=== PATIENT | female | born 1980 | race Hispanic/Latino ===

== ENCOUNTER 2021-06-14 09:25 | Emergency (ER) | payer MEDICAID, OTHER ==
[~2021-06-14] VITALS: Ht 152.4 cm; Wt 79.4 kg
[2021-06-14 09:46] LABS: BASOPHILS % (AUTO) 0.3 % (0.0-5.0); EOSINOPHILS % (AUTO) 1.6 % (0.0-8.0); HEMATOCRIT 42.5 % (36-48); LYMPHOCYTES % (AUTO) 7.2 % (21.0-51.0); MEAN CORPUSCULAR HEMOGLOBIN 28.2 pg (27.0-33.0); MEAN CORPUSCULAR HGB CONC 33.2 g/dL (32.0-36.0); MONOCYTES % (AUTO) 7.1 % (3.0-13.0); NEUTROPHILS % (AUTO) 83.1 % (40.0-77.0); PLATELET COUNT (AUTO) 383 K/uL (130-400); RED CELL DISTRIBUTION WIDTH 12.7 % (11.0-15.5); WHITE BLOOD COUNT (AUTO) 10.9 K/uL (4.8-10.8)
[2021-06-14 09:59] LABS: INR 1.02 (0.85-1.15); PROTHROMBIN TIME 11.1 SEC (9.6-11.6)
[2021-06-14 10:00] LABS: CREATININE 0.6 mg/dL (0.5-1.5); POTASSIUM 3.6 mmol/L (3.5-5.1)
[2021-06-14 10:01] LABS: PARTIAL THROMBOPLASTIN TIME 29.9 SEC (26.3-35.5)
[2021-06-14 10:03] LABS: ALBUMIN 3.6 g/dL (3.5-5.0); BILIRUBIN,TOTAL 0.2 mg/dL (0.2-1.0); TOTAL PROTEIN, SERUM 7.2 g/dL (6.0-8.3)
[2021-06-14 10:37] LABS: B-TYPE NATRIURETIC PEPTIDE 21 pg/mL (0-100)
[2021-06-14] MEDS ORDERED: KETOROLAC 30MG VIAL (30MG/ML) IV SCH (11:00)
[2021-06-14 13:09] LABS: APPEARANCE,URINE Clear (CLEAR); BILIRUBIN,URINE Negative (NEGATIVE); COLOR,URINE Yellow (YELLOW); GLUCOSE, URINE (UA) Negative (NEGATIVE); KETONES,URINE Negative (NEGATIVE); LEUKOCYTE ESTERASE ,URINE Negative (NEGATIVE); NITRATE,URINE Negative (NEGATIVE); OCCULT BLOOD,URINE Negative (NEGATIVE); PROTEIN,URINE Negative (NEGATIVE); UROBILINOGEN,URINE 0.2 mg/dL (0.2-1.0)
[2021-06-14] MEDS ORDERED: IOHEXOL 350 MG/ML 100ML INFUS..BTL IV ONE (14:22)
[2021-06-14] MEDS ORDERED: 0.9%NACL 1000ML 1,000 ML IV ONE (14:30)
[2021-06-14] MEDS ORDERED: NAPR-1180 PO (15:58)
[2021-06-14 16:39] VITALS: BP 132/80
== END 2021-06-14 16:30 | disposition home or self-care (01) ==
LOC: EDH 09:25
DX: R07.89 Other chest pain (principal); R00.0 Tachycardia, unspecified; R51.9 Headache, unspecified; J45.909 Unspecified asthma, uncomplicated; Z98.890 Other specified postprocedural states
CPT/HCPCS: 36415; 71045; 71275; 80053; 81003; 82550; 83880; 84484 ×2; 85025; 85378; 85610; 85730; 86140; 93005 ×2; 96374; 99285; J1885; Q9967

== ENCOUNTER 2024-08-11 16:50 | Emergency (ER) | payer BC, MEDICAID ==
[~2024-08-11] VITALS: Ht 142.2 cm; Wt 74.8 kg
[~2024-08-11 16:50] MED LIST: NAPR-1180 PO
--- NOTE | 2024-08-11 17:05 | ERN ---
ED Note History of Present Illness Stated Complaint: FALL Chief Complaint: Mechanical Fall Time Seen by MD: 16:57 Dictation: PATIENT IS A 44-YEAR-OLD FEMALE HERE WITH RIGHT ANKLE PAIN SWELLING AND DECREASED RANGE OF MOTION AND UNABLE TO WEIGHT BEAR SINCE TRIPPING AND FALLING 2 HOURS PRIOR TO ARRIVAL SKIN IS INTACT. NEUROVASCULAR CMS INTACT SHE HAS NOT TAKEN ANYTHING PRIOR TO ARRIVAL FOR PAIN. Allergies: Coded Allergies: No Known Drug Allergies (Unverified Allergy, Unknown, 06/14/21) Home Meds Active Scripts Naproxen (Naprosyn) 500 Mg Tablet, 500 MG PO BIDPC for 10 Days, #20 TAB 0 Refills Prov:MAGED DELACRUZ MD 06/14/21 Past Medical History Past Medical History: Asthma, Hypertension Surgical History: Cholecystectomy, Social History: Negative History: Not Applicable RN Note Reviewed/Agreed w/PFSH: Yes Review of System Dictation CONSTITUTIONAL: NEGATIVE EXCEPT FOR HPI HEAD/FACE: NEGATIVE EXCEPT FOR HPI EENT: NEGATIVE EXCEPT FOR HPI RESPIRATORY: NEGATIVE EXCEPT FOR HPI GASTROINTESTINAL/ABDOMINAL: NEGATIVE EXCEPT FOR HPI GENITOURINARY: NEGATIVE EXCEPT FOR HPI MUSCULOSKELETAL: NEGATIVE EXCEPT FOR HPI RIGHT LATERAL ANKLE PAIN SWELLING INTEGUMENTARY: NEGATIVE EXCEPT FOR HPI NEUROLOGICAL/PSYCH: NEGATIVE EXCEPT FOR HPI HEMATOLOGIC/LYMPHATIC: NEGATIVE EXCEPT FOR HPI ALL SYSTEMS NEGATIVE, EXCEPT NOTED ABOVE. 13 POINT REVIEW OF SYSTEMS ASSESSED AND ALL NEGATIVE EXCEPT FOR ABOVE. Initial Vital Sign VS Vital Signs Date Time Temp Pulse Resp B/P (MAP) Pulse Ox O2 Delivery O2 Flow Rate FiO2 08/11/24 16:58 98.1 100 16 142/94 96 Room Air 0 08/11/24 17:17 21 Physical Exam Dictation VITAL SIGNS REVIEWED GENERAL APPEARANCE: ALERT, ORIENTED X 3, NO ACUTE DISTRESS, WELL DEVELOPED, NOURISHED. HEAD AND FACE: NON-TRAUMATIC. EYES: PERRL, PINK CONJUNCTIVAS, EYELID NO TRAUMA, ANTERIOR CHAMBER WITH ARCUS SENILIS. EARS: PINNAS INTACT AND NO SIGNS OF TRAUMA OR ERYTHEMA EAR CANALS CLEAR AND NO DISCHARGE TM NO ERYTHEMA NOSE: NO DISCHARGE, NO BLEEDING. OROPHARYNX: MOUTH NORMAL, TONGUE PINK, PHARYNX CLEAR,NO ERYTHEMA, TONSILS NO EXUDATES, NO ABSCESSES NOTED, MUCOUS MEMBRANE MOIST NECK: SUPPLE, NON-TENDER, NO THYROMEGALY, NO MASSES, NO JVD, NO BRUITS BREAST:DEFERRED CHEST:NO TENDERNESS, NO CREPITUS, NO PARADOXICAL MOVEMENT, NO RETRACTIONS LUNGS:CLEAR, WELL-VENTILATED, SYMMETRIC, NO RALES, NO WHEEZING, NO RHONCHI, NO STRIDOR, GOOD BREATH SOUNDS BILATERALLY HEART: REGULAR RATE, REGULAR RHYTHM, NO MURMUR, NO GALLOPS VASCULAR: NO PERIPHERAL EDEMA, ABDOMEN: SOFT, POSITIVE BOWEL SOUNDS, NONDISTENDED, NO GUARDING, NONTENDER, NO REBOUND, NO MASSES NO HEPATOMEGALY, NO SPLENOMEGALY, NO BUITRAGO'S SIGN, NO HERNIAS. RECTAL: DEFERRED GENITAL: DEFERRED NEUROLOGICAL: NORMAL SPEECH, MOTOR FUNCTION INTACT, SENSORY FUNCTION INTACT MUSCULOSKEL RIGHT LATERAL ANKLE AND MALLEOLAR PAIN SWELLING. DECREASED RANGE OF MOTION SECONDARY TO PAIN. SKIN IS INTACT SKIN: COLOR PINK, DRY, NO TURGOR, NO RASH, NO LACERATIONS, NO ABRASIONS, NO CONTUSIONS. LYMPHATIC: DEFERRED Results (Laboratory/Radiology) Laboratory/Radiology SHOULDER COMP 2+VWS RT CLINICAL HISTORY: RIGHT LATERAL SHOULDER PAIN STATUS POST FALL 2 HOURS PRIOR TO ARRIVAL. COMPARISON: None TECHNIQUE: 2 images were obtained. FINDINGS: No obvious fracture or dislocation. No joint effusion. The soft tissues appear unremarkable. No radiopaque foreign bodies. IMPRESSION: No acute findings. DISTAL RIGHT FIBULAR SPIRAL FRACTURE. Labs Reviewed?: Yes ED Course ED Course Orders Procedure Category Date Status Time Apply Ice Pack To: CPOE 08/11/24 Transmitted (Er) 17:02 Ibuprofen 800 Mg Tab PHA 08/11/24 Complete (Motrin) 17:30 Posterior Ankle Splint KATE.ER 08/11/24 In Process 17:02 Crutches W/Training CPOE 08/11/24 Transmitted (Er) 17:02 Ankle Comp 3vws Rt RAD 08/11/24 Taken 17:02 Shoulder Comp 2+Vws Rt RAD 08/11/24 Resulted 17:34 Current Medications Medications (Trade) Dose Ordered Sig/Ene Route PRN Reason Start Time Stop Time Status Last Admin Dose Admin Ibuprofen (moTRIN) 800 mg ONCE ONCE PO 08/11/24 17:30 08/11/24 17:31 DC 08/11/24 17:15 Vital Signs Date Time Temp Pulse Resp B/P (MAP) Pulse Ox O2 Delivery O2 Flow Rate FiO2 08/11/24 17:17 98.1 100 16 142/94 96 Room Air* 0 21 08/11/24 16:58 98.1 100 16 142/94 96 Room Air 0 1758 RIGHT ANKLE POSTERIOR SPLINT PLACED BY TECH. DISTAL NEUROVASCULAR CMS INTACT POST PLACEMENT. PATIENT AND DAUGHTER MADE AWARE PATIENT HAS A DISTAL FIBULAR FRACTURE WITH A RIGHT SHOULDER NEGATIVE. Medical Decision Making MDM MEDICAL DISCHARGE MAKING BASED ON X-RAYS OF ALL PAINFUL AREAS TO INCLUDE SHOULDER AND RIGHT ANKLE. RIGHT SHOULDER NEGATIVE PATIENT HAS A SPIRAL FRACTURE OF THE RIGHT FIBULA. SPLINT IN PLACE PATIENT DISCHARGED HOME WITH CRUTCHES NO WEIGHT-BEARING INSTRUCTIONS UNTIL CLEARED BY ORTHOPEDIC SURGEON REFERRED TO DR. MORIAH MIKE DX & DISP Disposition: Discharge Departure Impression: Primary Impression: Fracture of distal end of right fibula Additional Impressions: Contusion of right shoulder, initial encounter, Fall Condition: Stable Scripts Ibuprofen (Ibuprofen 800 mg Tab) 800 Mg Tab 800 MG PO Q8H PRN for fever or pain, #30 TAB 0 Refills Prov: GILBERTO MCKEON NP 08/11/24 Additional Instructions: FOLLOW-UP WITH PRIMARY CARE PROVIDER IN 1 TO 2 DAYS. TAKE MEDICATIONS DIRECTED HERE IN THE EMERGENCY ROOM. OKAY TO CONTINUE HOME MEDICATIONS UNLESS OTHERWISE DISCUSSED DURING YOUR VISIT IN THE EMERGENCY ROOM TODAY. RETURN TO YOUR NEAREST EMERGENCY ROOM IF SYMPTOMS WORSEN OR IF THERE IS NO IMPROVEMENT. CALL 911 IF YOU NEED IMMEDIATE ASSISTANCE. TAKE TYLENOL OR MOTRIN [id number] NEEDED AND IF NO CONTRAINDICATIONS ARE PRESENT. INCREASE ORAL HYDRATION. A WOUND CULTURE OR URINE CULTURE WAS ORDERED HERE IN THE EMERGENCY ROOM DEPARTMENT PLEASE FOLLOW-UP WITH PRIMARY CARE PROVIDER AND ADVISE THEM TO GET REPEAT PORTS FROM OUR FACILITY. IF YOU HAD ANY TRU WRAP/SPLINTS THAT WERE APPLIED HERE, PLEASE DO NOT REMOVE THEM UNTIL YOU SEE YOUR PRIMARY CARE OR SPECIALTY. SPLINT/CRUTCHES/NO WEIGHT-BEARING UNTIL CLEARED BY ORTHOPEDIC SURGERY, CALL FOR AN APPOINTMENT ON TUESDAY. APPLY COOL COMPRESSES TO RIGHT ANKLE THREE TO 4 TIMES A DAY. TAKE IBUPROFEN EVERY 6-8 HOURS NEEDED FOR PAIN WITH FOOD. Referrals: NONE (PCP) MORIAH MIKE MD Time of Disposition: 17:59 I have reviewed the case, and I agree with, Diagnosis and Plan GILBERTO MCKEON NP Aug 11, 2024 17:05
[2024-08-11] MEDS: ibuPROFEN 800 MG TAB PO ONE (17:15)
[2024-08-11 17:17] VITALS: BP 142/94; PULSE 100; RESP 16; TEMP 98.1; O2SAT 96
--- NOTE | 2024-08-11 17:46 | HMCIMG ---
SHOULDER COMP 2+VWS RT CLINICAL HISTORY: RIGHT LATERAL SHOULDER PAIN STATUS POST FALL 2 HOURS PRIOR TO ARRIVAL. COMPARISON: None TECHNIQUE: 2 images were obtained. FINDINGS: No obvious fracture or dislocation. No joint effusion. The soft tissues appear unremarkable. No radiopaque foreign bodies. IMPRESSION: No acute findings.
[2024-08-11] MEDS ORDERED: IBUP-2077 PO (18:00)
--- NOTE | 2024-08-11 18:09 | HMCIMG ---
ANKLE COMP 3VWS RT CLINICAL HISTORY: RIGHT LATERAL ANKLE PAIN SWELLING STATUS POST TRIP FALL COMPARISON: None TECHNIQUE: AP lateral and oblique images were obtained. FINDINGS: There is a oblique lateral malleolus fracture with one cortical width displacement. There is overlying soft tissue edema. There is a question of small joint effusion. The remaining bony structures appear intact. IMPRESSION: 1 cortical width displaced oblique lateral malleolar fracture.
--- NOTE | 2024-08-11 18:16 | NUR ---
SPLINT APPLIED TO RT ANKLE AND CRUTCHES GIVEN TO PT, PT TOLERATED WELL
== END 2024-08-11 18:19 | disposition home or self-care (01) ==
LOC: EDH 16:50
DX: S82.61XA Displaced fracture of lateral malleolus of right fibula, initial encounter for closed fracture (principal); S40.011A Contusion of right shoulder, initial encounter; I10 Essential (primary) hypertension; J45.909 Unspecified asthma, uncomplicated; Z90.49 Acquired absence of other specified parts of digestive tract; W01.0XXA Fall on same level from slipping, tripping and stumbling without subsequent striking against object, initial encounter; Y93.89 Activity, other specified; Y92.89 Other specified places as the place of occurrence of the external cause; Y99.8 Other external cause status
CPT/HCPCS: 29515; 73030; 73610; 99283